=== PATIENT | female | born 1955 | race Caucasian/White ===

== ENCOUNTER 2023-01-06 06:23 | Outpatient (CLI) | payer MEDICARE, BC, SELFPAY ==
--- NOTE | 2023-01-06 07:58 | W.ANESCHARGE ---
Anesthesia Charges Start Date/Time Anesthesia Start Date: 01/06/23 Anesthesia Start Time: 07:15 Stop Date/Time Anesthesia Stop Date: 01/06/23 Anesthesia Stop Time: 07:54
--- NOTE | 2023-01-06 08:43 | W.ANESCHARGE ---
Anesthesia Charges Start Date/Time Anesthesia Start Date: 01/06/23 Anesthesia Start Time: 07:15 Stop Date/Time Anesthesia Stop Date: 01/06/23 Anesthesia Stop Time: 07:54
== END 2023-01-06 06:24 | disposition home or self-care (01) ==
PROVIDERS: PCP Family Medicine; Visit Provider Surgery
DX: Z12.11 Encounter for screening for malignant neoplasm of colon (principal); K63.5 Polyp of colon; K57.30 Diverticulosis of large intestine without perforation or abscess without bleeding; Z86.010 Personal history of colon polyps
CPT/HCPCS: 00811; 45385; 88305; J2704

== ENCOUNTER 2023-01-18 06:08 | Day surgery (SDC) | payer MEDICARE, BC, SELFPAY ==
[2023-01-18] VITALS (13 sets, daily range): BP systolic 149–176; BP diastolic 91–105; PULSE 67–102; RESP 8–20; TEMP 36.6–37.2; O2SAT 95–97; BMI 32.1
[2023-01-18] MEDS: SODIUM CHLORIDE 0.9 % (FLUSH) 10 ML SYRINGE IVF (06:14)
[2023-01-18] MEDS: LACTATED RINGERS 1000 ML 1,000 ML 100 ML IV ×2 (06:15→07:46)
--- NOTE | 2023-01-18 07:32 | P.GSOP_ITS ---
Operative Note Pre-op diagnosis: 1. Symptomatic epigastric hernia. Post-op diagnosis: 1. Epigastric hernia containing incarcerated preperitoneal fat. Type of Procedure: 1. Open epigastric hernia repair with mesh. Indications: 67-year-old female was seen in clinic for evaluation of enlarging epigastric hernia that was noticed many years ago after her last . Patient states that the bulge has not been bothering her untill the last 2-3 years. She noticed that the bulge was getting bigger in size and she had to reduce it multiple times a day to relieve pain. The pain was mostly present when the bulge was out. On clinical exam in epigastrium patient had a plum sized bulge that was reducible. A crandall of air was felt when reducing this hernia. The fascial defect was measuring approximately 3 cm. Given patient's clinical history and her physical exam, an open epigastric hernia repair was recommended. The procedure was discussed in detail. The risks associated procedure including infection, bleeding, injury to intra-abdominal organs, and hernia recurrence were all discussed with the patient, and she agreed to proceed. Procedure Description: After discussing the risks and benefits of the procedure, the patient signed informed consent.? The operative site was marked and the patient was brought to the operating room and placed on the operating table in supine position.? Care was taken to pad the patient's pressure points.?? The patient was then intubated by anesthesia.?? The operative site was then prepped and draped in the usual sterile fashion.? A time-out was then performed. A midline skin incision was made with a scalpel a few cm inferior to the xiphoid process over the palpable hernia bulge. Subcutaneous fat was dissected with cautery down to the hernia sac and fascia. The hernia sac was mobilized off the fascia and preperitoneal fat was noted to be incarcerated through the fascial defect. The hernia sac was located slightly to the right of midline. The fascial defect was approximately 2.5-3 cm in diameter. Preperitoneal space was developed for mesh placement. This was done with cautery. Hemostasis achieved with cautery. The abdomen was not entered during this dissection. [address] mesh was then placed into the preperitoneal space and secured in place with interrupted 0-0 Nurolon sutures. The fascia over the mesh was reapproximated with a running 2-0 Vicryl suture. Local anesthetic was injected into the anterior fascia in subcutaneous space. Subcutaneous fat was patricia pproximated with interrupted Vicryl sutures. The dermis was then closed with interrupted 3-0 Vicryl sutures. The skin was closed with a running 4-0 Monocryl stitch. Steri-Strips and sterile dressings were placed over the incision. ? The patient was then woken and transported to the recovery area in stable condition. ? The patient tolerated the procedure well. Findings: 2.5-3 cm fascial defect repaired with 8 cm in diameter Ventralex ST mesh. Implants: Ventralex ST mesh. Anesthesia: GETA Surgeon: Yordy Pena MD Estimated blood loss (mL): 5 Condition: stable Disposition: PACU Date of procedure: 01/18/23
[2023-01-18] MEDS: CEFAZOLIN 2 GM INJ IVP (07:45)
--- NOTE | 2023-01-18 07:55 | W.ANESCHARGE ---
Anesthesia Charges Start Date/Time Anesthesia Start Date: 01/18/23 Anesthesia Start Time: 07:32 Stop Date/Time Anesthesia Stop Date: 01/18/23 Anesthesia Stop Time: 08:46
[2023-01-18] MEDS: BUPIVACAINE 0.5% 30 ML INJECTION (08:07)
--- NOTE | 2023-01-18 08:49 | W.ANESCHARGE ---
Anesthesia Charges Start Date/Time Anesthesia Start Date: 01/18/23 Anesthesia Start Time: 07:32 Stop Date/Time Anesthesia Stop Date: 01/18/23 Anesthesia Stop Time: 08:46
[2023-01-18] MEDS: IBUPROFEN 600 MG TABLET PO (09:43)
== END 2023-01-18 10:53 | disposition home or self-care (01) ==
PROVIDERS: PCP Family Medicine; Visit Provider Surgery
PROC: (CPT 49594; principal; 2023-01-18 07:30)
DX: K43.6 Other and unspecified ventral hernia with obstruction, without gangrene (principal)
CPT/HCPCS: 49594; 750; A9270; C1781; J0330; J0665; J0690; J1100; J2250; J2371; J2405; J2704; J3010; J7120

== ENCOUNTER 2023-10-26 09:00 | Emergency (ER) | payer MEDICARE, BC, SELFPAY ==
[2023-10-26 09:06] VITALS: BP 167/93; PULSE 99; RESP 16; TEMP 36.4; O2SAT 93; BMI 28.2
--- NOTE | 2023-10-26 10:12 | CRLHL7_ITS ---
For Patients: As a result of the Century Cures Act, medical imaging exams and procedure reports are released immediately into your electronic medical record. You may view this report before your referring provider. If you have questions, please contact your health care provider. Indication: Constipation, weight loss Technique: Volumetric multidetector CT images of the abdomen and pelvis were obtained after the administration of intravenous contrast. 76 cc Isovue 370 low osmolar intravenous contrast Comparison: None available. Findings: The lung bases are clear. The liver is normal in attenuation without intrahepatic biliary ductal dilatation. The portal vein is patent. The gallbladder is unremarkable without evidence of radiopaque calculus. There is no significant common biliary ductal dilatation or abrupt cut off. The spleen is normal in enhancement and size. The stomach and duodenum are grossly unremarkable. The pancreas is normal in enhancement without significant atrophy. The adrenal glands are unremarkable. The kidneys demonstrate preserved corticomedullary differentiation without evidence of obstructive uropathy. There is moderate stool seen throughout the colon with minimal colonic diverticulosis. No evidence of diverticulitis. The appendix is unremarkable. There is no significant mesenteric, retroperitoneal, or pelvic sidewall lymph nodes. The aorta is nonaneurysmal. There is no significant atherosclerotic disease appreciated. The solid pelvic viscera are grossly unremarkable. There is no free fluid or free air. There is likely postoperative change of the epigastrium status post hernia repair. There is mild diastasis of the rectus musculature. The lumbar vertebral body heights are grossly maintained in satisfactory alignment without evidence of displaced fracture, lytic or blastic lesion. Impression: Moderate stool seen throughout the colon consistent with constipation. No evidence of obvious mass. No definite acute intra-abdominal abnormality. Please note that all CT scans at this facility use dose modulation, iterative reconstruction, and/or weight-based dosing when appropriate to reduce radiation dose to as low as reasonably achievable. Dictated by Fermin Rausch MD @ 10/26/2023 12:06:40 PM (Electronically Signed)
--- NOTE | 2023-10-26 10:15 | ED_ITS ---
HPI - General Adult General Chief complaint: Constipation Stated complaint: Constipation, light headed, nauseated, anxious Time Seen by Provider: 10/26/23 10:01 History of Present Illness HPI narrative: This 67-year-old female comes in reporting constipation with her last bowel movement occurring about 5 days ago. She also reports weight loss that is unintentional over the past months. She states that she has lost 19 lb. She reports more recent loss of 7 lb over the past week or 2. She states that she feels like she is eating normally and does feel like her abdomen is a bit bloated. She also reports that she feels like she needs to support her perineum when passing stool and wonders if there is some complication of prolapse causing difficulty with passing stool. She reports anxiety and is not taking any medications for this. She did take some MiraLax and Dulcolax in these past several days without any results. Related Data Home Medications ?Medication ?Instructions ?Recorded ?Confirmed aspirin 81 mg tablet,delayed 81 mg PO DAILY 01/17/23 01/18/23 release (Adult Aspirin Regimen) calcium carbonate 600 mg PO DAILY 01/17/23 01/18/23 cholecalciferol (vitamin D3) 50 2,000 unit PO DAILY 01/17/23 01/18/23 mcg (2,000 unit) capsule ferrous sulfate 325 mg (65 mg 325 mg PO BID 01/17/23 01/17/23 iron) tablet,delayed release omega-3 fatty acids 1,000 mg 1,000 mg PO DAILY 01/17/23 01/18/23 capsule Previous Rx's ?Medication ?Instructions ?Recorded hydrocodone 5 mg-acetaminophen 325 1 tab PO Q6H PRN pain #25 tabs 01/18/23 mg tablet lorazepam 0.5 mg tablet (Ativan) 0.5 mg PO BID PRN #20 tabs 10/26/23 sertraline 50 mg tablet (Zoloft) 50 mg PO DAILY #30 tabs 10/26/23 Allergies Allergy/AdvReac Type Severity Reaction Status Date / Time No Known Drug Allergies Allergy Verified 10/26/23 11:46 Review of Systems Status of ROS: Reports: 10 or more systems reviewed and unremarkable except as noted in History and below Narrative: Constitutional: No fevers, no weight gain or loss. Eyes: No discharge. No vision changes. HENT: No congestion, no sore throat, no ear pain. Cardiovascular: No chest pain, no palpitations. Respiratory: No shortness of breath, no wheezes, no cough. Gastrointestinal: No abdominal pain, no vomiting, no diarrhea. She feels that her abdomen is a bit distended. Genitourinary: No dysuria, no hematuria. Musculoskeletal: Normal range of motion. Skin: No rashes, no pruritis. Neurological: No dizziness, weakness, sensory change, speech change. Endo/Heme/Allergies: No bruising or bleeding. No polydipsia. Pysch: no suicidality, no insomnia. She reports significant anxiety symptoms. All other systems reviewed and are negative. [facility] Medical History (Updated 10/26/23 @ 12:54 by Alvaro Velazco MD) Ganglion cyst of tendon sheath of right hand ?M67.441 - Ganglion, right hand (ICD-10) High frequency sensorineural hearing loss of left ear ?H90.5 - Unspecified sensorineural hearing loss (ICD-10) Dyslipidemia ?E78.5 - Hyperlipidemia, unspecified (ICD-10) SUKH (obstructive sleep apnea) ?G47.33 - Obstructive sleep apnea (adult) (pediatric) (ICD-10) Vitamin D insufficiency ?E55.9 - Vitamin D deficiency, unspecified (ICD-10) Right knee injury ?S89.91XA - Unspecified injury of right lower leg, initial encounter (ICD-10) Dermatophytosis of nail ?B35.1 - Tinea unguium (ICD-10) Surgical History (Updated 01/17/23 @ 08:52 by Pankaj Lang RN) H/O blepharoplasty ?Z98.890 - Other specified postprocedural states (ICD-10) Social History Smoking Status: Never smoker Do you use any of these nicotine containing products: None Second hand tobacco smoke exposure: No How often do you have a drink containing alcohol: 2-3 times a week Alcohol type: beer, wine and hard liquor How many standard drinks containing alcohol do you have on a typical day: 1 or 2 How often do you have six or more drinks on one occasion: Never AUDIT-C Alcohol total score: 3 Non-prescribed substance use: denies use Caffeine: No Are you using contraception or practicing any form of control: No Exam 2 Narrative: Exam Narrative: Constitutional: Well-developed, well-nourished, no acute distress. HEENT: Normocephalic, atraumatic. Neck: Normal range of motion. Nontender. Supple. Heart: Regular. No murmurs. Normal rate. Intact distal pulses. Lungs: Clear to auscultation. No chest discomfort. No wheezes, rhonchi, or rales. Abdomen: Normal bowel sounds. Nontender. No rebound tenderness. Genitalia: Deferred. Back: No midline tenderness. Normal range of motion. Extremities: Normal range of motion. No injury. Skin: Intact. No rash. Warm. No erythema or pallor. Neurologic: No altered sensation. No weakness. Alert and oriented. Psychiatric: No suicidality. No anxiety or depression. No insomnia. Nursing notes and vitals signs are reviewed. Const: Vital Signs, click to edit/add: Vital Signs - 24 hr 10/26/23 09:06 Temperature 97.5 F L Pulse Rate [Right Pulse Oximeter] 99 Respiratory Rate 16 Blood Pressure [Ri ght Upper Arm] 167/93 H Pulse Oximetry 93 Oxygen Delivery Me thod Room Air Course Vital Signs Vital signs: Initial Vital Signs Temperature 97.5 F L 10/26/23 09:06 Temperature Source Temporal Artery Scan 10/26/23 09:06 Pulse Rate 99 10/26/23 09:06 Pulse Rhythm Regular 10/26/23 09:06 Pulse Strength 3+ Normal 10/26/23 09:06 Respiratory Rate 16 10/26/23 09:06 Blood Pressure 167/93 H 10/26/23 09:06 Blood Pressure Mean 117 H 10/26/23 09:06 Blood Pressure Position Sitting 10/26/23 09:06 Pulse Oximetry 93 10/26/23 09:06 Oxygen Delivery Method Room Air 10/26/23 09:06 Vital Signs Temperature 97.5 F L 10/26/23 09:06 Pulse Rate 99 10/26/23 09:06 Respiratory Rate 16 10/26/23 09:06 Blood Pressure 167/93 H 10/26/23 09:06 Pulse Oximetry 93 10/26/23 09:06 Oxygen Delivery Method Room Air 10/26/23 09:06 Temperature 97.5 F L 10/26/23 09:06 Pulse Rate 99 10/26/23 09:06 Respiratory Rate 16 10/26/23 09:06 Blood Pressure 167/93 H 10/26/23 09:06 Pulse Oximetry 93 10/26/23 09:06 Oxygen Delivery Method Room Air 10/26/23 09:06 Medical Decision Making MDM Narrative Medical decision making narrative: This 67-year-old female comes in reporting constipation symptoms with the suspicion that she may have some prolapse of her rectum when bearing down. She also reports weight loss and states that she is having lots of anxiety that is causing some insomnia. I did place an order for CT scan of her abdomen and pelvis which returns with no acute findings. Additionally lab results also are in normal range. This was very reassuring to the patient. I did recommend follow-up with surgery Clinic to further evaluate her rectal function. Additionally I prescribed Zoloft and some tablets of Ativan to hopefully treat her anxiety symptoms. She does have a follow-up appointment in about 3 weeks with her primary physician at which time she can review these plans. Lab Data Labs: Lab Results 10/26/23 Range/Units 10:37 WBC 5.41 (4.50-11.00) K/uL RBC 4.88 (4.00-5.20) m/uL Hgb 15.0 (12.0-16.0) gm/dL Hct 44.2 (33.0-51.0) % MCV 91 (80-100) fL MCH 31 (26-34) pg MCHC 34 (32-36) gm/dL RDW Coeff of Leigha 11.8 (11.5-15.5) % Plt Count 317 (140-440) K/uL Neut % (Auto) 80.0 H (42.0-72.0) % Lymph % (Auto) 12.0 L (20-44) % Glenn % (Auto) 7.4 (0.0-11.0) % Eos % (Auto) 0.2 (0.0-7.0) % Baso % (Auto) 0.4 (0.0-3.0) % Neut # (Auto) 4.30 (1.7-7.0) K/uL Lymph # (Auto) 0.60 L (0.90-2.90) K/uL Glenn # (Auto) 0.40 (0.00-0.90) K/UL Eos # (Auto) 0.01 (0.00-0.50) K/uL Baso # (Auto) 0.02 (0.00-0.30) K/uL Abs Immat Gran (auto) 0.00 (0.00-0.30) K/uL Imm/Tot Granulo (auto) 0.0 % ESR 2 (2-20) mm/hr Sodium 133 L (135-149) mmol/L Potassium 4.2 (3.6-5.1) mmol/L Chloride 97 (96-114) mmol/L Carbon Dioxide 29 (20-32) mmol/L Anion Gap 7 (7-15) mEq/L BUN 7 (7-30) mg/dL Creatinine 0.9 (0.5-1.5) mg/dL Estimated Creat Clear 44.36 Estimated GFR 71 ml/min Glucose 106 (60-115) mg/dL Calcium 10.3 (8.4-10.6) mg/dL Total Bilirubin 0.9 (0.1-1.5) mg/dL Direct Bilirubin 0.3 (0.0-0.5) mg/dL AST 27 (12-35) U/L ALT 17 (4-35) U/L Alkaline Phosphatase 68 (40-150) U/L Total Protein 7.8 (6.0-8.3) g/dL Albumin 5.0 (3.3-5.0) g/dL PTH Intact 23.0 (14.2-75.2) pg/mL Discharge Plan Discharge Clinical Impression: Constipation, Anxiety Patient Disposition: Home, Self-Care Condition: Stable Additional Instructions: Take medications as prescribed. Follow up with surgery Clinic for further evaluation of rectal function. Call [phone] for appointment. Prescriptions: New lorazepam [Ativan] 0.5 mg tablet 0.5 mg PO BID PRNQty: 20 0RF sertraline [Zoloft] 50 mg tablet 50 mg PO DAILY Qty: 30 2RF No Action aspirin [Adult Aspirin Regimen] 81 mg tablet,delayed release (DR/EC) 81 mg PO DAILY cholecalciferol (vitamin D3) 50 mcg (2,000 unit) capsule 2,000 unit PO DAILY calcium carbonate 600 mg calcium (1,500 mg) tablet 600 mg PO DAILY ferrous sulfate 325 mg (65 mg iron) tablet,delayed release (DR/EC) 325 mg PO BID omega-3 fatty acids 1,000 mg capsule 1,000 mg PO DAILY hydrocodone-acetaminophen 5-325 mg tablet 1 tab PO Q6H PRN (Reason: pain) Qty: 25 0RF Follow Up/Referrals: Christine Cm DO [Primary Care Provider] - Stand Alone Forms: MyHealth Info Instructions
--- OUTSIDE RECORDS SUMMARY | 2023-10-26 10:22 | XMS_ITS | Data Portability ---
Author Organization [place] [facility] Address [address] [place] [address] Care Team Providers Care Cook Jelly Name Role Phone KALE [facility] Primary Care Provider [phone] Unavailable Referring Provider [phone] K[facility] Primary Care Provider [phone] Assessment Encounter Date Assessment Date Assessment LastModified by Organization Details LastModified Time 02/01/2023 02/01/2023 Today I spent a considerable amount of time discussing the patients past medical and personal history, as well as performing a physical examination all of which is documented in it's entirety in the electronic health record. I reviewed the pathophysiology of the disorder, potential contributing and risk factors as well as treatment options to address their complaints. I discussed the pros and cons of advanced imaging. I did not recommend advanced imaging with CBCT. I recommended a panoramic radiography. In this radiograph the mandibular condyles were partially visualized and appear relatively normal in morphology. There was no other suggestion of osseous or odontogenic abnormalities. From a treatment perspective I recommended a self management treatment approach. Treatment begins with home self management designed to rest the muscles of mastication and reduce inflammation in the temporomandibular joints. This includes heat and ice compresses, eating a soft food or pain-free diet, bilateral chewing identifying and decreasing daytime muscle tension and modification of their sleep position. Beyond self management I believe that they would benefit from a mandibular intraoral appliance. We discussed the importance of an intraoral appliance to address her TMD. I also explained to Lilibeth that I wonder if her sleep bruxism could also be strongly correlated to her sleep apnea. I explained that it may be possible to address both TMD and mild/moderate SUKH with a mandibular advancement oral appliance. For definitive diagnosis, determination of the severity of the SUKH, sleep related breathing disorder and sleep bruxism through a PSG or a home sleep study are instrumental. Lilibeth will discuss it with Dr. Maurer at her follow-up in April. She was advised to return for a follow-up after evaluation from a sleep physician. She will receive a recall reminder in 3 months. The goal of treatment is to restore function. I believe that by following these treatment recommendations there is a good prognosis for reduction of symptoms. History was obtained from the patient. The patient has 3 diagnoses they would like to address. This case is low complexity because of limited diagnoses and chronic nature. Risk of complications include progressive disease/symptoms. Today time spent may have included a review of past records, history taking, review of diagnoses, contributing factors, treatment plan, diagnostic testing, prognosis, expectations, risks and complications of treatment/no treatment, discussions with other providers and completing documentation was 60 minutes. Cost of care and insurance coverage was reviewed and discussed with the patient. Not available 02/01/2023 20:19:36 Plan of Treatment Reminders Order Date Submit Date Provider Last Modified By Organization Details Last Modified Time Details Appointments None recorded. Lab None recorded. Referral None recorded. Procedures None recorded. Surgeries None recorded. Imaging XR, orthopantog yobany 2022 023 YENNY [place], [address] [facility], [address], [place], [address], 14:06:04 Medication Orders None recorded. Patient TargetsNo targets recorded. Patient Instructions Encounter Date Encounter Id Patient Instructions Last Modified By Organization Details Last Modified Time 02/01/2023 [id number] Self Care for TMD Not avai lable 02/01/2023 20:21:51 Reason for Referral None Reported. Results Created Date Observation Date Name Description Value Unit Range Abnormal Flag LastModifiedBy Organization Detail LastModifiedTime 02/02/20 XR, ortho panto gram No observ ation record ed. Not Available 14:09:58 02/02/2002/02/2023 XR, ortho panto gram No observ ation record ed. [place] [address], [place], [address], 02/02/2023 14:10:03 Result Notes None recorded. 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 Procedures Surgical History Date Name Laterality Status Provider Name and Address Organization Details Recorded Time 3 Orthopantogram completed HUGO BEAVERS DDS,MS [address], [place], [address], [facility] 02/01/2023 12:04:51 3 hernia repair completed Margarita Girard [facility] 02/01/2023 10:54:57 Imaging Results Imaging Date Name Status LastModified by Organization Details LastModified Time 02/01/2023 XR, orthopantogram completed Info rmation not available 02/02/2023 14:09:58 02/02/2023 XR, orthopantogram completed [facility] [address], [place], [address], 02/02/2023 14:10:03 Procedure Notes None recorded. Medical Equipment None Reported. Allergies No known drug allergies Medications Name Sig Start Date Stop Date Status Note LastModified by Organization Details LastModified Time hydrocodone 5 mg-acetamin ophen 325 mg tablet TAKE 1 TABLET BY MOUTH EVERY 6 HOURS NEEDED FOR PAIN 02/01 completed Not Available Not Available Not Available ferrous sulfate 325 mg (65 mg iron) tablet,azra yed release PLEASE SEE ATTACHED FOR DETAILED DIRECTION S active Not Available Not Available No t Available GaviLyte-G 236 gram-22.74 gram-6.74 gram-5.86 gram oral solution TAKE 4,000 ML BY MOUTH ONE TIME FOR 1 DOSE 02/01 completed Not Available Not Available Not Available Vitals Date Recorded Body height Body mass index (BMI) Body weight Heart rate Systolic blood pressure Diastolic blood pressure Provider Name and Address Organization Details Last Updated DateTime 3 158.75 cm 29.7 kg/m2 23466.7 4 g 72 /min 145 mm[Hg] 99 mm[Hg] Margarita ADLRE - [facility] 3 10:52:41 Social History Question Answer Notes LastModified by Organizat ion Details LastModified Time Are You Currently Employed? No Retired Information not available 02/01/2023 What Type Of Diet Are You Following? REGULAR Information n ot available 02/01/2023 What Is Your Relationship Status? Information not available 02/01/2023 Sex: Unknown Functional Status None recorded. Mental Status None recorded. Family History Nothing Reported. Medical History Condition Response Obstructive Sleep Apnea Y Anemia Y Gynecological HistoryNo gynecological history recorded. 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 402330269643757 05 Sleep related bruxism 27 [id number] Obstructiv e sleep apnea of adult 1279948971944 Health Concerns Section Related Observation LastModified by Organization Detai ls LastModified Time None Recorded Concern Status LastModified by Organization Details LastModified Time None Recorded Advance Directives Directive None Recorded Payers Encounter Date Sequence Insurance Name Policy Number Policy Salcido Covered Member ID Salcido Member ID Guarantor Name 02/01/2023 1 [place] [id number] Lilibeth Etienne [id number] 1 Lilibeth Etienne 02/01/2023 2 [place] [id number] Lilibeth Etienne [id number] Lilibeth Etienne Notes Date Note Type Note Provider Name and Address Organization Details Recorded Time 02/01/2023 text/html HPI Notes: gener al HPI for jaw, face, TMD pain Reported by patient. Onset: started 4 month(s) ago Location: right; 8 years ago hearing loss and ringing in the ear Quality: none Associated Symptoms: TMJ crunchy noises, crepitus Symptoms status stable Patient presents today for evaluation of a possible temporomandibular disorder. These symptoms are chronic and began with no clear triggering events. Previous consultation include evaluation with his/her dentist. Symptoms are right sided only and aggravated by no clear triggers. The patient is aware of teeth clenching and grinding. Lilibeth is refereed by her dentist for evaluation of right TMJ crepitus. Lilibeth denies any history of TMJ pain/discomfort. She denies TMJ locking episodes. She denies dental pain and occlusal changes. She recalls noticing the crepitus around August, it was a gradual onset without pain and without any precipitant events. It has been steady since onset. She is aware of occasional daytime clenching and sleep bruxism. She has tried isometric jaw exercises for a week, without changes to the noises. She denies headaches, neck and back pain. She reported a history of anemia and GERD. She was diagnosed with SUKH and her last sleep study was at least 5 years ago. She has an appointment with Dr. Maurer in April for re-evaluation of her SUKH. She uses her CPAP inconsistently. 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 HUGO BEAVERS DDS,MS [address] [facility] [address], [place], [address], [facility] 02/01/2023 20:21:54 OBGyn Episode No OBEpisode recorded.
--- OUTSIDE RECORDS SUMMARY | 2023-10-26 10:22 | XMS_ITS | Clinical Summary ---
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 Medications Medication Sig Dispensed Refills Start Date End Date Status CPAPIndications:Obst ructive sleep apnea autoCPAP, heated humidifier, mask, headgear, filters and tubing. Pressure: 4-15cm/H2O Length of Need: 99 1 Device 0 03/31/2015 Active cholecalciferol (VITAMIN D-3) 2,000 unit capsule Take 1 capsule by mouth once daily. 0 04/04/2015 Active omega-3 fatty acids-vitamin E (FISH OIL) 1,000 mg cap Take by mouth. 0 04/04/2015 Active calcium carbonate (CALTRATE) 600 mg calcium (1,500 mg) tablet Take 2 tablets by mouth once daily. 180 tablet 3 09/02/2017 Active olopatadine (Pataday Once Daily Relief) 0.2 % ophthalmic solution 1 Drop once daily. Active Sennosides (Senna) 8.6 mg cap Take by mouth. Active ondansetron (ZOFRAN ODT) 4 mg disintegrating tabletIndications:Na usea Place 1 Tablet (4 mg) on the tongue every 8 hours if needed for Nausea/Vomiti ng. 15 Tablet 10/24/2023 Active ferrous sulfate 325 mg delayed release tabletIndications:Bl ood donor,Anemia due to blood loss, chronic Take 1 tablet BID with meal for 1 month. Then take 1 tablet daily for 2 months. Recheck labs. 90 Tablet 3 12/03/2022 Discontinue d(*Patient states no longer taking) Active Problems Problem Noted Date Diagnosed Date Ganglion cyst of tendon sheath of right hand 07/2022 Family hx of melanoma 12/03/2022 High frequency sensorineural hearing loss of lef t ear 12/31/2015 Dyslipidemia, goal LDL below 160 02/23/2015 SUKH 06/12/2014 AHI-20 06/24/2014 Vitamin D insufficiency 01/12/2013 Screen for colon cancer 06/24/2009 Overview: Colonoscopy 06/2009 normal repeat in 10 years KNEE INJURY, right 09/02/2006 Dermatophytosis of nail Resolved Problems Problem Noted Date Diagnosed Date Resolved Date Pap smear for cervical cancer screening 11/30/2022 01/24/2023 Overview: 11/2022 UNS/HPV negative 12/2022 NIL/HPV negative Plan: Pap/HPV due 01/2028 Encounters Date Type Department Care Team Description 10/26/2023 Telephone [facility] [address] [place] [address] Denise Cool, OTHER (REQUEST FOR RETURN CALL) 10/25/2023 Nurse Triage [address] [address] Christine Cm DO Constipation; Results 10/25/[address] [address] Christine Cm DO Follow Up (Symptoms have not improvded) 10/24/2023 12:30 PM CDT Ancillary Procedure [facility] [address] [place] [address] Arrived 10/24/2023 11:15 AM CDT Office Visit [facility] [address] [place] [address] Denise Cool, Constipation (Last regular BM was 7 days ago, Had small BM on tuesday after taking Mirilax. Has started passing stool this morning as well. Has started taking Senna as well) 10/24/2023 Travel 10/24/2023 Nurse Triage [facility] [address] [place] [address] Christine Cm, Abdominal Pain/problem 08/26/2023 1:15 PM CDT Orders Only [facility] [address] [place] [address] Lab, [facility] 08/26/2023 Travel from Last 3 Months Immunizations Name Administration Dates Next Due Hepatitis B (Adult) 06/02/2010 Influenza Virus, Unspecified 01/14/2020,02/26/20 15 Influenza, IIV4 03/06/2021, 9,02/21/2018,2016,02/17/2016 Influenza, Inactivated AIIV4 (Age 65+ Years) Preserv Free 02/02/2023 Influenza, Injectable, Mdck, Quadrivalent, W/preservative 01/14/2020 Influenza,CCIIV4 PRESERV FREE 03/23/2022 MMR 10/27/2016,09/29/2016 Tdap 09/02/2017,11/24/2007 Zoster (Shingrix-RZV, recombinant) 10/27/2018 Zoster (Zostavax-ZVL, live) 02/26/2013 Family History Medical History Relation Name Comments Parkinsonism Brother 1 Adryan Alcohol/Drug Father ??? Cancer-prostate Father Hyperlipidemia Father Hypertension Father Psychiatric illness Father Depressi on, dementia Cancer-breast Maternal Aunt 3x Heart Disease Maternal Grandfather in his early 60's, great aunt and great uncle also heart disease Stroke Maternal Grandmother Arthritis Mother osteoarthritis Asthma Mother Hyperlipidemia Mother Hypertension Mother Cancer-breast Other 1 cousins x2 Other Other 2 multiple fam wi th sleep apnea Cancer-breast Paternal Aunt Stroke Paternal Grandfather Diabetes Paternal Grandmother Other Sister 1 Alem hypothyroid Hypertension Sister 2 Melanoma Sister 3 Roshni Psychiatric illness Sister 3 Roshni SAD Other Sister 4 Kamille Sleep Apnea, Al so brother Relation Name Status Comments Brother 1 Adryan Brother 2 Alive Brother 3 Alive Father Maternal Aunt Maternal Grandfather Maternal Grandmother Mother Other 1 cousins Other 2 Paternal Aunt Paternal Grandfather Paternal Grandmother Sister 1 Alem Sister 2 Sister 3 Roshni Sister 4 Kamille Social History Tobacco Use Types Packs/Day Years Used Date Smoking Tobacco: Never Smokeless Tobacco: Never Tobacco Cessation:Counseling Given: Yes Alcohol Use Standard Drinks/Week Comments Not Currently 1.7 (1 standard drink = 0.6 oz p ure alcohol) PHQ-2 Answer Date Recorded PHQ-2 TOTAL SCORE 0 12/03/2022 Social Connections Answer Date Recorded Frequency of Communication with Friends and Fami ly 0 10/24/2023 Financial Resource Strain Answer Date R ecorded Difficulty of Paying Living Expenses 3 10/24/2023 Difficulty of Paying Living Expenses Not on file 10/24/2023 Food Insecurity Answer Date Recorded Worried About Running Out of Food in the Last Ye ar 1 10/24/2023 Transportation Needs Answer Date Record ed Lack of Transportation (Medical) 1 10/24/2023 Housing Stability Answer Date Recorded Unable to Pay for Housing in the Last Year 1 10/24/2023 Sex and Gender Information Value Date Recorded Sex Assigned at Not on file Gender Identity Not on file Sexual Orientation Not on file Obstetrics History Para Term AB IAB SAB Ectopic Multiple Livin g Live Births 1 Date Outcome GA Total Labor Labor/2nd/3rd Weight Sex Type Anes PTL Marie A1 A5 Name Clin Last Filed Vital Signs Vital Sign Reading Time Taken Comments Blood Pressure 156/86 10/24/2023 12:10 PM CDT Pulse 77 10/24/2023 12:10 PM CDT Temperature 36.7 ??C (98.1 ??F) 01/14/2023 8:10 AM CD T Respiratory Rate 20 12/10/2019 1:15 PM CDT Oxygen Saturation 97% 04/12/2023 8:53 AM CONSULTING SALES MANAGER Inhaled Oxygen Concentration - - Weight 69.9 kg (154 lb) 10/24/2023 11:30 AM CDT Height 157 cm (5' 1.81) 04/12/2023 8:53 AM CONSULTING SALES MANAGER Body Mass Index 28.34 04/12/2023 8:53 AM CONSULTING SALES MANAGER Plan of Treatment Upcoming Encounters Date Type Department Care Team (Late st Contact Info) Description 11/16/2023 9:00 AM CDT Office Visit [facility] [address] [place] [address] Christine Cm DO [address] [place] [address] 12/13/2023 10:30 AM CDT Office Visit [facility] [place] [address] [facility] [address] [place] [address] Kevin De León, DPM [address] [place] [address] 12/14/2023 8:35 AM CDT Office Visit [facility] [address] [place] [address] Christine Cm DO [address] [place] [address] Health Maintenance Due Date Last Done Comments Zoster (shingles) series for age 50+ (3 of 3) 2018 10/27/2018, 02/26/2013 Fecal testing non-DNA (FIT,FOBT,iFOBT) for age 45-75 04/02/2022 04/02/2021 DEXA/DXA scan for age 65+ 2022 05/30/2014 Pneumococcal series for age 65+ (1 of 1 - PCV) 2022 COVID-19 vaccine series (2022- season) 2023 02/25/2023, 06/10/2022, 03/11/2021, Additional history exists Depression screening for age 12+ 12/04/2023 12/03/2022, 01/03/2020, 12/10/2019, Additional history exists Medicare Wellness for age 65+ 12/04/2023 12/03/2022 Influenza for age 65+ 01/01/2024 02/02/2023 , 03/23/2022, 03/06/2021, Additional history exists BMI (ht and wt on same day) for age 18+ 04/12/2024 04/12/2023, 01/14/2023, 12/03/2022, Additional history exists Mammogram for age 45-75 05/13/2024 05/13/19 24, 05/11/2022, 04/10/2021, Additional history exists Pap test for age 21-65 01/14/2026 , 01/14/2023, 12/03/2022, Additional history exists Tetanus booster 09/03/2027 09/02/2017, 11/24/2007 Lipids for age 45-75 12/04/2027 12/03/2022, 02/07/2020, 10/24/2018, Additional history exists Hepatitis C screening for ag e 18-79 Completed 05/29/2014 Tdap Completed 09/02/2017, 11/24/2007 HIV for age 15-65 Completed 09/23/2022 (Co mpleted outside of [facility]) Procedures Procedure Name Priority Date/Time Associated Diagnosis Comments XR ABDOMEN 1 VIEW Routine 10/24/2023 12: 29 PM CDT Constipation, acute CBC WITH AUTO DIFFERENTIAL Routine 10/24/2023 12:20 PM CDT Unexplained weight loss MAGNESIUM Routine 10/24/2023 12:20 PM CDT Unexplained weight loss TSH WITH REFLEX Routine 10/24/2023 12:20 PM CDT Unexplained weight loss COMP METABOLIC PANEL Routine 10/24/2023 12:20 PM CDT Unexplained weight loss CBC WITH AUTO DIFFERENTIAL Routine 10/24/2023 12:20 PM CDT Unexplained weight loss FERRITIN Routine 08/26/2023 1:11 PM CDT Anemia due to blood loss, chronic Blood donor XR MAMMO BETSY BILAT SCREEN Routine 05/13/2023 8:46 AM CONSULTING SALES MANAGER Visit for screening mammogram HPV THIN PREP Routine 01/14/2023 8:00 AM CDT Pap smear for cervical cancer screening LIPID PANEL W REFLEX MEASURED LDL Routine 12/03/2022 9:33 AM CDT Dyslipidemia, goal LDL below 160 OCCULT BLOOD IFOBT STOOL Routine 04/02/2021 1:04 PM CONSULTING SALES MANAGER Screening for colorectal cancer XR DXA BONE DENSITY 2 SITES AXIAL Routine 05/30/2014 11:20 AM CONSULTING SALES MANAGER Screening for osteoporosis ANTI HCV Routine 05/29/2014 2:23 PM CONSULTING SALES MANAGER Need for hepatitis C screening test from Last 3 Months or Most Recently Relevant to Health Maintenance Results * XR ABDOMEN 1 VIEW (10/24/2023 12:29 PM CDT) Anatomical Region Laterality Modality Abdomen Computed Radiogr aphy 10/26/2023 7:04 AM CDT Narrative 10/26/2023 7:04 AM CDT For Patients: ??As a result of the Cures Act, medical imaging exams and procedure reports are released immediately into your electronic medical record. ??You may view this report before your referring provider. ??If you have questions, please contact your health care provider. Indication: Constipation, acute. Technique: Abdomen 2 view. Comparison: None. Findings/Impression: Bowel: Moderate stool retention throughout the colon consistent with constipation. No obstructive changes. Soft tissues: No sign of free air. ??No sign of soft tissue mass. ??No suspicious calcifications. Bones: Unremarkable for age. Dictated by Uriel To MD @ 10/26/2023 7:04:56 AM (Electronically Signed) Procedure Note Uriel To MD - 10/26/2023 For Patients: As a result of the Cures Act, medical imagingexams and procedure reports are released immediately into your electronicmedical record. You may view this report before your referring provider.If you have questions, please contact your health care provider. Indication: Constipation, acute. Technique: Abdomen 2 view. Comparison: None. Findings/Impression: Bowel: Moderate stool retention throughout the colon consistent withconstipation. No obstructive changes. Soft tissues: No sign of free air. No sign of soft tissue mass. Nosuspicious calcifications. Bones: Unremarkable for age. Dictated by Uriel To MD @ 10/26/2023 7:04:56 AM (Electronically Signed) Denise Lemonxler DO GENERAL IMAGING * (ABNORMAL) CBC WITH AUTO DIFFERENTIAL (10/24/2023 12:20 PM CDT) WHITE BLOOD COUNT 6.4 4.5 - 11.0 thou/cu mm 10/24/2023 12:28 PM CDT [facility] RED BLOOD COUNT 4.87 4.00 - 5.20 mil/cu mm 10/24/2023 12:28 PM CDT [facility] HEMOGLOBIN 15.4 12.0 - 16.0 g/dL 10/24/2023 12:28 PM CDT [facility] HEMATOCRIT 44.4 33.0 - 51.0 % 10/24/2023 12:28 PM CDT [facility] MCV 91 80 - 100 fL 10/24/2023 12:28 PM CDT [facility] MCH 31.6 26.0 - 34.0 pg 10/24/2023 12:28 PM CDT [facility] MCHC 34.7 32.0 - 36.0 g/dL 10/24/2023 12:28 PM CDT [facility] RDW 12.5 11.5 - 15.5 % 10/24/2023 12:28 PM CDT [facility] PLATELET COUNT 329 140 - 440 thou/cu mm 10/24/2023 12:28 PM CDT [facility] MPV 9.2 6.5 - 11.0 fL 10/24/2023 12:28 PM CDT [facility] % NEUT 81.4 % 10/24/2023 12:28 PM CDT [facility] % LYMPH 12.0 % 10/24/2023 12:28 PM CDT [facility] % MONO 5.9 % 10/24/2023 12:28 PM CDT [facility] % EOS 0.2 % 10/24/2023 12:28 PM CDT [facility] % BASO 0.5 % 10/24/2023 12:28 PM CDT [facility] ABSOLUTE NEUTROPHILS 5.2 1.7 - 7.0 thou/cu mm 10/24/2023 12:28 PM CDT [facility] ABSOLUTE LYMPHOCYTES 0.8(L) 0.9 - 2.9 thou/cu mm 10/24/2023 12:28 PM CDT [facility] ABSOLUTE MONOCYTES 0.4 <0.9 thou/cu mm 10/24/2023 12:28 PM CDT [facility] ABSOLUTE EOSINOPHILS 0.0 <0.5 thou/cu mm 10/24/2023 12:28 PM CDT [facility] ABSOLUTE BASOPHILS 0.0 <0.3 thou/cu mm 10/24/2023 12:28 PM CDT [facility] Blood BLOOD SPECIMEN / Unknown Venipuncture / Unknown 10/24/2023 12:20 PM CDT 10/24/2023 12:21 PM CDT Denise Cool DO HEMATOLOGY Performing Organization Address [facility]/ZIP Co de Phone Number [facility] [address] [place] [address], * TSH WITH REFLEX (10/24/2023 12:20 PM CDT) TSH 0.70 0.27 - 4.20 uIU/mL 10/25/2023 4:59 AM CDT [facility] Blood BLOOD SPECIMEN / Unknown Venipuncture / Unknown 10/24/2023 12:20 PM CDT 10/24/2023 12:21 PM CDT Narrative [facility] - 10/25/2023 4:59 AM CDT In Adults, TSH values between 5.00 and 10.00 uIU/ml do not necessarily indicate the presence of Hypothyroidism. Correlation with clinical findings such as presence of goiter and/or Thyroperoxidase (TPO) Antibody may be helpful. For more information please refer to BRENDAN 2004; 291: 228-238. Denise Cool DO CHEMISTRY Performing Organization Address City/[facility]/ZIP Co de Phone Number [facility] [address] [place] [address], [place] * MAGNESIUM (10/24/2023 12:20 PM CDT) MAGNESIUM 2.2 1.6 - 2.4 mg/dL 10/25/2023 4:59 AM CDT [facility] Blood BLOOD SPECIMEN / Unknown Venipuncture / Unknown 10/24/2023 12:20 PM CDT 10/24/2023 12:21 PM CDT Denise Cool DO CHEMISTRY [facility] [address] [place] [address], * (ABNORMAL) COMP METABOLIC PANEL (10/24/2023 12:20 PM CDT) SODIUM 136 136 - 145 mmol/L 10/25/2023 4:59 AM CDT [facility] POTASSIUM 4.5 3.5 - 5.1 mmol/L 10/25/2023 4:59 AM T [facility] CHLORIDE 98 98 - 107 mmol/L 10/25/2023 4:59 AM T [facility] CO2,TOTAL 28 22 - 29 mmol/L 10/25/2023 4:59 AM CDT [facility] ANION GAP 10 5 - 18 10/25/2023 4:59 AM T [facility] GLUCOSE 105(H) 70 - 99 mg/dL 10/25/2023 4:59 AM T [facility] CALCIUM 10.4(H) 8.8 - 10.2 mg/dL 10/25/2023 4:59 AM T [facility] BUN 8 8 - 23 mg/dL 10/25/2023 4:59 AM T [facility] CREATININE 0.93(H) 0.50 - 0.90 mg/dL 10/25/2023 4:59 AM T [facility] BUN/CREAT RATIO 9(L) 10 - 20 4:59 AM CDT [facility] eGFR 68(L) >90 mL/min/1.7 3m2 10/25/2023 4:59 AM CDT [facility] Comment:As of 2021, eG FR is calculated by the CKD-EPI creatinine equation without race adjustment. ??eGFR can be influenced by muscle mass, exercise, and diet. ??The reported eGFR is an estimation only and is only applicable if the renal function is stable. ALBUMIN 4.8 4.0 - 4.9 g/dL 10/25/2023 4:59 AM CDT [facility] PROTEIN,TOTAL 7.5 6.0 - 8.0 g/dL 10/25/2023 4:59 AM CDT [facility] BILIRUBIN,TOTAL 0.5 0.0 - 1.2 mg/dL 10/25/2023 4:59 AM CDT [facility] ALK PHOSPHATASE 68 35 - 104 IU/L 10/25/2023 4:59 AM CDT [facility] ALT (SGPT) 16 10 - 35 IU/L 10/25/2023 4:59 AM CDT [facility] AST (SGOT) 23 10 - 35 IU/L 10/25/2023 4:59 AM CDT [facility] Blood BLOOD SPECIMEN / Unknown Venipuncture / Unknown 10/24/2023 12:20 PM CDT 10/24/2023 12:21 PM CDT Denise Cool DO CHEMISTRY [facility] [address] [place] [address], * FERRITIN (08/26/2023 1:11 PM CDT) FERRITIN 41.5 15.0 - 150.0 ng/mL 08/26/2023 10:11 PM CDT [facility] Blood BLOOD SPECIMEN / Unknown Venipuncture / Unknown 08/26/2023 1:11 PM CDT 08/26/2023 1:11 PM CDT Christine Cm DO CHEMISTRY [facility] [address] [place] [address], [place] * XR MAMMO BETSY BILAT SCREEN (05/13/2023 8:46 AM CONSULTING SALES MANAGER) Anatomical Region Laterality Modality BREASTS, Breast Left, Breast Right Bilateral Mammography Impressions 05/16/2023 8:30 AM CONSULTING SALES MANAGER ??There is no radiographic evidence for malignancy. ??Recommend annual mammograms. MAMMOGRAM ASSESSMENT: ??ACR 1 Negative PATIENTS: You will also receive a letter with your examination results in an easy to read format. ??If you have questions about your results, please contact your referring provider. Narrative 05/16/2023 8:30 AM CONSULTING SALES MANAGER For Patients: As a result of the Century Cures Act, medical imaging exams and procedure reports are released immediately into your electronic medical record. You may view this report before your referring provider. If you have questions, please contact your health care provider. XR MAMMO BETSY BILAT SCREEN [[id number]] CLINICAL HISTORY: ??This is an asymptomatic 67 y.o. patient. INDICATION FOR EXAM: Mammogram Screening. TECHNIQUE: CC & MLO views were obtained. ??This study was evaluated with the assistance of Computer-Aided Detection. Breast Tomosynthesis was used in interpretation. COMPARISON FILM: Yes 05/11/21 [facility] 04/10/21 [facility] FINDINGS: ??The breasts have scattered areas of fibroglandular density. There are no dominant masses, suspicious micro calcifications or areas of architectural distortion. Christine Cm DO MAMMO * HPV HIGH RISK (01/14/2023 8:00 AM CDT) TYPE 16 Negative Negative 01/18/2023 2:07 PM CDT [facility] TYPE 18 Negative Negative 01/18/2023 2:07 PM CDT [facility] OTHER HIGH RISK TYPES Negative Negative 01/18/2023 2:07 PM CDT [facility] Other (Cervical) Non-Blood / Unknown 01/14/2023 8:00 AM CDT 01/17/2023 11:29 AM CDT Narrative [facility] - 01/18/2023 2:07 PM CDT HPV types 16, 18, 31, 33, 35, 39, 45, 51, 52, 56, 58, 59, 66 and 68 DNA were undetectable or below the pre-set threshold. Methodology: [employer] 4800 HPV Test Christine Cm DO MICROBIOLOGY [facility] [address] [place] [address], * (ABNORMAL) LIPID PANEL W REFLEX MEASURED LDL (12/03/2022 9:33 AM CDT) CHOLESTEROL,TOTAL 201(H) 100 - 199 mg/dL 12/03/2022 8:53 PM CDT [facility] Comment: Cholesterol, Total Reference Ranges Desirable <200 mg/dL Borderline 200-239 mg/dL High >=240 mg/dL TRIGLYCERIDES 70 <150 mg/dL 12/03/2022 8:53 PM CDT [facility] HDL CHOLESTEROL 58 >40 mg/dL 8:53 PM CDT [facility] NON-HDL CHOLESTEROL 143 <145 mg/dl 12/03/2022 8:53 PM CDT [facility] CHOL/HDL RATIO 3.47 <4.50 12/03/2022 8:53 PM CDT [facility] LDL CHOLESTEROL 129 <=130 mg/dL 12/03/2022 8:53 PM CDT [facility] VLDL CHOLESTEROL 14 <=30 mg/dL 12/03/2022 8:53 PM CDT [facility] PROVIDER ORDERED STATUS RANDOM 12/03/2022 8:53 PM CDT [facility] Blood BLOOD SPECIMEN / Unknown Venipuncture / Unknown 12/03/2022 9:33 AM CDT 12/03/2022 9:37 AM CDT Christine Cm DO CHEMISTRY [facility] [address] [place] [address], [place] * OCCULT BLOOD IFOBT STOOL (04/02/2021 1:04 PM CONSULTING SALES MANAGER) STOOL BLOOD ,IFOBT Negative Negative 04/10/2021 8:55 AM CONSULTING SALES MANAGER [facility] Stool STOOL SPECIMEN / Unknown Non-Blood / Unknown 04/02/2021 1:04 PM CONSULTING SALES MANAGER 04/09/2021 1:04 PM CONSULTING SALES MANAGER Christine Cm DO LABORATORY Performing Organization Address City/[facility]/ZIP Co de Phone Number [facility] [id number] [place] [address], * XR DXA BONE DENSITY 2 SITES (05/30/2014 11:20 AM CONSULTING SALES MANAGER) Anatomical Region Laterality Modality Spine, HIPS, HIPL, HIPR Other Narrative 06/18/2014 5:24 PM CONSULTING SALES MANAGER Please see scanned document for results of this study. Procedure Note Ambar Krishna PA - 06/18/2014 Please see scanned document for results of this study. Christine Cm DO DEXA * ANTI HCV [[id number]] (05/29/2014 2:23 PM CONSULTING SALES MANAGER) HEPATITIS C ANTIBODY Non-Reacti ve Non-Reacti ve 05/29/2014 8:28 PM CONSULTING SALES MANAGER [facility] Blood specimen (specimen) BLOOD SPECIMEN / Unknown Venipuncture / Unknown 05/29/2014 2:23 PM CONSULTING SALES MANAGER 05/29/2014 2:24 PM CONSULTING SALES MANAGER Narrative [facility] - 05/29/2014 8:28 PM CONSULTING SALES MANAGER Antibodies to HCV not detected; does not exclude the possibility of exposure to HCV. Christine Cm DO SEND OUTS [facility] [address] [place] [address], [place] from Last 3 Months or Most Recently Relevant to Health Maintenance Care Teams Enterprise Records Analyst Relationship Specialty Start Date End Date Christine Cm DO [address] [place] [address] PCP - General Family Practice 01/05/13
[2023-10-26 10:40] LABS: Basophils Absolute Auto 0.02 K/uL (0.00-0.30); Basophils Percent Auto 0.4 % (0.0-3.0); Eosinophils Absolute Auto 0.01 K/uL (0.00-0.50); Eosinophils Percent Auto 0.2 % (0.0-7.0); Hematocrit 44.2 % (33.0-51.0); Mean Corpuscular HGB Conc 34 gm/dL (32-36); Mean Corpuscular Hemoglobin 31 pg (26-34); Mean Corpuscular Volume 91 fL (80-100); Monocytes Percent Auto 7.4 % (0.0-11.0); Platelet Count* 317 K/uL (140-440); RDW Coefficient of Variation % 11.8 % (11.5-15.5); Red Blood Count 4.88 m/uL (4.00-5.20); White Blood Count* 5.41 K/uL (4.50-11.00)
[2023-10-26 10:56] LABS: Slide Review Reflex No
[2023-10-26 11:12] LABS: Chloride* 97 mmol/L (96-114); Potassium* 4.2 mmol/L (3.6-5.1); Sodium* 133 mmol/L (135-149)
[2023-10-26 11:14] LABS: Creatinine* 0.9 mg/dL (0.5-1.5); Est. Creatinine Clearance* 44.36; Estimated Glomerular Filt Rate 71 ml/min
[2023-10-26 11:15] LABS: Alanine Aminotransferase* 17 U/L (4-35); Alkaline Phosphatase* 68 U/L (40-150); Anion Gap 7 mEq/L (7-15); Aspartate Amino Transferase* 27 U/L (12-35); Bilirubin Direct* 0.3 mg/dL (0.0-0.5); Bilirubin Total* 0.9 mg/dL (0.1-1.5); Blood Urea Nitrogen* 7 mg/dL (7-30); Carbon Dioxide* 29 mmol/L (20-32); Glucose* 106 mg/dL (60-115); Total Protein* 7.8 g/dL (6.0-8.3)
[2023-10-26 11:16] LABS: Calcium* 10.3 mg/dL (8.4-10.6)
[2023-10-26 12:09] LABS: Erythrocyte SedimentationRate* 2 mm/hr (2-20)
== END 2023-10-26 13:48 | disposition home or self-care (01) ==
PROVIDERS: Emergency Provider Emergency Medicine Emergency Medical Services; PCP Family Medicine
DX: K59.00 Constipation, unspecified (principal); F41.9 Anxiety disorder, unspecified
CPT/HCPCS: 36415; 74177; 80048; 80076; 83970; 85025; 85651; 99284; 99285; Q9967

== ENCOUNTER 2024-03-01 11:00 | Outpatient (RCR) | payer MEDICARE, BC, SELFPAY | END 2024-06-29 23:59 | disposition home or self-care (01) | PROVIDERS: PCP Family Medicine; Visit Provider Family Medicine | DX: R19.5 Other fecal abnormalities (principal); G47.00 Insomnia, unspecified; Z51.89 Encounter for other specified aftercare | CPT/HCPCS: 97112; 97140; 97162; 97530; 97535 ==